=== PATIENT | female | born 1950 | race Caucasian/White ===

== ENCOUNTER → 2018-04-01 | Outpatient (CLI) | payer MEDICARE, OTHER ==
[~2018-04-01] MED LIST: ASPI81CH PO; ATOR40TA PO; Actos15 MG PO; BACL10 PO; CEPH500 PO; CLOP75 PO; Citrate Of Mag300 ML PO; Cymbalta60 MG PO; Docusate Sodiu1 EACH PO; GLIP5 PO; MELO7.5 PO; MYRBETRIQ25 MG PO; Mirtazapine7.5 MG PO; Norco 5-325 Ta1 EACH PO; OLME20 PO; OMEPRAZOLE MAGN20 MG PO; OXYB5 PO; Omeprazole20 M1 PO; Oxybutynin Chlo15 MG PO; PIOG45 PO; PRAV20 PO; PROP10; PROP10 PO; PROP60 PO; Tylenol325 MG PO; Zofran Odt4 MG PO; Zofran Odt4 MG SL
[2018-04-01 18:38] LABS: U Amphetamine Screen Not Detected; U Barbituate Screen Not Detected; U Benzodiazapine Screen Not Detected; U Buprenorphine Screen Not Detected; U Cannabinoids Screen Not Detected; U Cocaine Screen Not Detected; U Methadone Screen Not Detected; U Methamphetamine Screen Not Detected; U Opiates Screen Not Detected; U Oxycodone Screen Not Detected; U Phencyclidine Screen Not Detected; U Propoxyphene Screen Not Detected
== END | disposition home or self-care (01) ==
LOC: LAB SHORT 15:39 → LAB 15:39
PROVIDERS: Internal Medicine
DX: Z51.81 Encounter for therapeutic drug level monitoring (principal); Z79.891 Long term (current) use of opiate analgesic

== ENCOUNTER → 2024-07-07 | Outpatient (CLI) | payer MEDICARE, OTHER ==
[~2024-07-07] MED LIST changes: +ACET500 PO; +ACTOS30 MG PO; +ALPRAZOLAM0.5 M1 PO; +AMLODIPINE BESYL5 MG PO; +AMOX500 PO; +BUPR75 PO; +OMEP20ER PO; +PRAVASTATIN SOD20 MG PO
[2024-07-07 17:40] LABS: Creatinine, Urine Random 67.5 mg/dL (27.00-270.00)
[2024-07-07 17:43] LABS: Microalb/Creat Ratio UR, Rand 147.556 mg/g (0.000-30.000); Microalbumin, Random Urine 99.6 mg/L (0.000-20.000)
== END | disposition home or self-care (01) ==
LOC: LAB 14:00 → LAB SHORT 14:00
PROVIDERS: Student in an Organized Health Care Education/Training Program
DX: E11.9 Type 2 diabetes mellitus without complications (principal)
CPT/HCPCS: 82043; 82570